=== PATIENT | female | born 1940 | race Caucasian/White ===

== ENCOUNTER 2021-06-20 20:07 | Inpatient (IN) | payer MEDICARE ==
[2021-06-20 21:05] VITALS: BMI 25.0
[2021-06-21] MEDS ORDERED: DIPHENHYDRAMINE TOP PRN (08:02)
[2021-06-21] MEDS ORDERED: Levothyroxine Sodium 25 MCG TAB PO SCH (08:45)
[2021-06-21] MEDS: Betamethasone 0.1% Cream 15 GM TUBE TOP SCH (08:54)
[2021-06-21] MEDS: Aspirin 81 mg Enteric Coated Tablet PO SCH (08:59)
[2021-06-21] MEDS: Furosemide 20 MG TAB PO SCH (08:59)
[2021-06-21] MEDS: Apixaban 5 MG TAB PO SCH ×2 (09:00→21:18)
[2021-06-21] MEDS: Mirtazapine 15 MG TAB PO SCH (09:01)
[2021-06-21] MEDS: Acetaminophen 325 MG TAB PO PRN ×2 (09:21→21:39)
[2021-06-21] MEDS ORDERED: GUANFACINE HCL 1 MG PO SCH (21:00)
[2021-06-21] MEDS: Rosuvastatin 10 MG TAB PO SCH (21:18)
[2021-06-22] MEDS: Acetaminophen 325 MG TAB PO PRN (05:05)
[2021-06-22] MEDS: Levothyroxine Sodium 25 MCG TAB PO SCH (05:05)
[2021-06-22 05:36] LABS: #Eosinphils 0.1 thou/uL (0.0-0.7); #Lymphocytes 1.8 thou/uL (1.20-3.40); #Monocytes 0.5 thou/uL (0.11-0.59); #Neutrophils 2.8 thou/uL (1.40-6.50); %Basophils 0.5 % (0.0-1.0); %Eosinophils 2.3 % (0.0-10.0); %Lymphocytes 34.5 % (21.0-51.0); %Monocytes 9.2 % (0.0-10.0); %Neutrophils 53.5 % (42.0-75.0); Mean Corpuscular HGB CONC 33.8 g/dL (32.0-36.0); Mean Corpuscular Hemoglobin 30.2 pg (27.0-31.0); Mean Corpuscular Volume 89.5 fL (78.0-98.0); Mean Platelet Volume 7.5 fL (7.4-10.4); Platelet Count 157 thou/uL (130-400); RBC Distribution Width 12.6 % (11.5-14.5); Red Blood Cell (RBC) Count 4.31 mill/uL (4.20-5.40); White Blood Cell (WBC) Count 5.2 thou/uL (4.8-10.8)
[2021-06-22 05:48] LABS: Anion Gap 11 mmol/L (10-20); BUN (Urea Nitrogen) 19 mg/dL (9.8-20.1); Calc. Creatinine Clearance 61 mL/min (70-130); Calcium 9.3 mg/dL (7.8-10.44); Carbon Dioxide 26 mmol/L (23-31); Chloride 99 mmol/L (98-107); Glucose 92 mg/dL (83-110); Potassium 4.6 mmol/L (3.5-5.1); Sodium 131 mmol/L (136-145)
[2021-06-22] MEDS: Mirtazapine 15 MG TAB PO SCH (09:55)
[2021-06-22] MEDS: Furosemide 20 MG TAB PO SCH (09:56)
[2021-06-22] MEDS: Aspirin 81 mg Enteric Coated Tablet PO SCH (09:56)
[2021-06-22] MEDS: Apixaban 5 MG TAB PO SCH ×2 (09:56→20:45)
[2021-06-22] MEDS: Betamethasone 0.1% Cream 15 GM TUBE TOP SCH (09:57)
[2021-06-22] MEDS: hydrALAZINE 25 MG TAB PO PRN (13:18)
[2021-06-22] MEDS ORDERED: hydrALAZINE 25 MG TAB PO SCH (14:00)
[2021-06-22] MEDS: Rosuvastatin 10 MG TAB PO SCH (20:44)
[2021-06-23] MEDS: Levothyroxine Sodium 25 MCG TAB PO SCH (05:52)
[2021-06-23] MEDS: Mirtazapine 15 MG TAB PO SCH (09:12)
[2021-06-23] MEDS: Aspirin 81 mg Enteric Coated Tablet PO SCH (09:13)
[2021-06-23] MEDS: Apixaban 5 MG TAB PO SCH ×2 (09:13→21:28)
[2021-06-23] MEDS: Furosemide 20 MG TAB PO SCH (09:13)
[2021-06-23] MEDS: Betamethasone 0.1% Cream 15 GM TUBE TOP SCH (09:14)
[2021-06-23 14:14] LABS: SARS-CoV-2 PCR by NAA Not Detected (NotDetected)
[2021-06-23] MEDS: Rosuvastatin 10 MG TAB PO SCH (21:28)
[2021-06-23] MEDS: Acetaminophen 325 MG TAB PO PRN (23:56)
[2021-06-24] MEDS: Levothyroxine Sodium 25 MCG TAB PO SCH (05:29)
[2021-06-24] MEDS: Apixaban 5 MG TAB PO SCH ×2 (08:53→20:23)
[2021-06-24] MEDS: Furosemide 20 MG TAB PO SCH (08:53)
[2021-06-24] MEDS: Aspirin 81 mg Enteric Coated Tablet PO SCH (08:53)
[2021-06-24] MEDS: Mirtazapine 15 MG TAB PO SCH (08:55)
[2021-06-24] MEDS: Betamethasone 0.1% Cream 15 GM TUBE TOP SCH (08:58)
[2021-06-24] MEDS: Acetaminophen 325 MG TAB PO PRN (09:00)
[2021-06-24] MEDS ORDERED: Fluconazole 100 MG TAB PO SCH (11:45)
[2021-06-24] MEDS: Rosuvastatin 10 MG TAB PO SCH (20:23)
[2021-06-25] MEDS: Levothyroxine Sodium 25 MCG TAB PO SCH (05:22)
[2021-06-25] MEDS: Fluconazole 100 MG TAB PO SCH (09:30)
[2021-06-25] MEDS: Aspirin 81 mg Enteric Coated Tablet PO SCH (09:30)
[2021-06-25] MEDS: Apixaban 5 MG TAB PO SCH ×2 (09:30→20:58)
[2021-06-25] MEDS: Mirtazapine 15 MG TAB PO SCH (09:31)
[2021-06-25] MEDS: Acetaminophen 325 MG TAB PO PRN ×2 (09:31→17:15)
[2021-06-25] MEDS: Furosemide 20 MG TAB PO SCH (09:31)
[2021-06-25] MEDS: Betamethasone 0.1% Cream 15 GM TUBE TOP SCH (09:35)
[2021-06-25] MEDS: Rosuvastatin 10 MG TAB PO SCH (20:58)
[2021-06-26] MEDS: Levothyroxine Sodium 25 MCG TAB PO SCH (05:39)
[2021-06-26] MEDS: Furosemide 20 MG TAB PO SCH (09:43)
[2021-06-26] MEDS: Apixaban 5 MG TAB PO SCH ×2 (09:43→21:02)
[2021-06-26] MEDS: Fluconazole 100 MG TAB PO SCH (09:44)
[2021-06-26] MEDS: Mirtazapine 15 MG TAB PO SCH (09:45)
[2021-06-26] MEDS: Betamethasone 0.1% Cream 15 GM TUBE TOP SCH (09:46)
[2021-06-26] MEDS: Aspirin 81 mg Enteric Coated Tablet PO SCH (09:46)
[2021-06-26] MEDS: Acetaminophen 325 MG TAB PO PRN (10:24)
[2021-06-26] MEDS: Rosuvastatin 10 MG TAB PO SCH (21:02)
[2021-06-27] MEDS: Levothyroxine Sodium 25 MCG TAB PO SCH (05:31)
[2021-06-27] MEDS: Furosemide 20 MG TAB PO SCH (09:09)
[2021-06-27] MEDS: Betamethasone 0.1% Cream 15 GM TUBE TOP SCH (09:10)
[2021-06-27] MEDS: Aspirin 81 mg Enteric Coated Tablet PO SCH (09:10)
[2021-06-27] MEDS: Apixaban 5 MG TAB PO SCH ×2 (09:10→21:08)
[2021-06-27] MEDS: Mirtazapine 15 MG TAB PO SCH (09:11)
[2021-06-27] MEDS: Acetaminophen 325 MG TAB PO PRN (11:29)
[2021-06-27] MEDS: Rosuvastatin 10 MG TAB PO SCH (21:08)
[2021-06-28] MEDS: Levothyroxine Sodium 25 MCG TAB PO SCH (05:19)
[2021-06-28] MEDS: Acetaminophen 325 MG TAB PO PRN ×2 (08:29→20:45)
[2021-06-28] MEDS: Aspirin 81 mg Enteric Coated Tablet PO SCH (08:30)
[2021-06-28] MEDS: Apixaban 5 MG TAB PO SCH ×2 (08:30→20:43)
[2021-06-28] MEDS: Betamethasone 0.1% Cream 15 GM TUBE TOP SCH (08:31)
[2021-06-28] MEDS: Mirtazapine 15 MG TAB PO SCH (08:31)
[2021-06-28] MEDS: Furosemide 20 MG TAB PO SCH (08:31)
[2021-06-28] MEDS: Rosuvastatin 10 MG TAB PO SCH (20:44)
[2021-06-29] MEDS: Levothyroxine Sodium 25 MCG TAB PO SCH (05:27)
[2021-06-29] MEDS: Aspirin 81 mg Enteric Coated Tablet PO SCH (10:25)
[2021-06-29] MEDS: Mirtazapine 15 MG TAB PO SCH (10:25)
[2021-06-29] MEDS: Furosemide 20 MG TAB PO SCH (10:25)
[2021-06-29] MEDS: Apixaban 5 MG TAB PO SCH ×2 (10:25→20:54)
[2021-06-29] MEDS: Acetaminophen 325 MG TAB PO PRN ×2 (10:26→17:23)
[2021-06-29] MEDS: Betamethasone 0.1% Cream 15 GM TUBE TOP SCH (10:26)
[2021-06-29] MEDS: Rosuvastatin 10 MG TAB PO SCH (20:54)
[2021-06-30] MEDS: Levothyroxine Sodium 25 MCG TAB PO SCH (05:37)
[2021-06-30] MEDS: Apixaban 5 MG TAB PO SCH ×2 (09:14→21:54)
[2021-06-30] MEDS: Betamethasone 0.1% Cream 15 GM TUBE TOP SCH (09:14)
[2021-06-30] MEDS: Furosemide 20 MG TAB PO SCH (09:14)
[2021-06-30] MEDS: Ibuprofen 200 MG TAB PO PRN (09:14)
[2021-06-30] MEDS: Aspirin 81 mg Enteric Coated Tablet PO SCH (09:14)
[2021-06-30] MEDS: Mirtazapine 15 MG TAB PO SCH (09:15)
[2021-06-30] MEDS: Acetaminophen 325 MG TAB PO PRN (12:28)
[2021-06-30] MEDS: Rosuvastatin 10 MG TAB PO SCH (21:54)
[2021-07-01] MEDS: Levothyroxine Sodium 25 MCG TAB PO SCH (05:38)
[2021-07-01] MEDS: Mirtazapine 15 MG TAB PO SCH (09:04)
[2021-07-01] MEDS: Ibuprofen 200 MG TAB PO PRN ×2 (09:04→17:37)
[2021-07-01] MEDS: Furosemide 20 MG TAB PO SCH (09:04)
[2021-07-01] MEDS: Apixaban 5 MG TAB PO SCH ×2 (09:04→21:32)
[2021-07-01] MEDS: Aspirin 81 mg Enteric Coated Tablet PO SCH (09:05)
[2021-07-01] MEDS: Betamethasone 0.1% Cream 15 GM TUBE TOP SCH (09:05)
[2021-07-01] MEDS: Acetaminophen 325 MG TAB PO PRN (12:15)
[2021-07-01 17:38] LABS: SARS-CoV-2 PCR by NAA Not Detected (NotDetected)
[2021-07-01] MEDS: Rosuvastatin 10 MG TAB PO SCH (21:32)
[2021-07-02] MEDS: Levothyroxine Sodium 25 MCG TAB PO SCH (05:38)
[2021-07-02] MEDS: Furosemide 20 MG TAB PO SCH (10:01)
[2021-07-02] MEDS: Mirtazapine 15 MG TAB PO SCH (10:01)
[2021-07-02] MEDS: Aspirin 81 mg Enteric Coated Tablet PO SCH (10:01)
[2021-07-02] MEDS: Apixaban 5 MG TAB PO SCH ×2 (10:02→20:57)
[2021-07-02] MEDS: Betamethasone 0.1% Cream 15 GM TUBE TOP SCH (10:03)
[2021-07-02] MEDS: Rosuvastatin 10 MG TAB PO SCH (20:57)
[2021-07-03] MEDS: Levothyroxine Sodium 25 MCG TAB PO SCH (05:14)
[2021-07-03] MEDS: Furosemide 20 MG TAB PO SCH (08:53)
[2021-07-03] MEDS: Aspirin 81 mg Enteric Coated Tablet PO SCH (08:53)
[2021-07-03] MEDS: Apixaban 5 MG TAB PO SCH ×2 (08:53→21:02)
[2021-07-03] MEDS: Mirtazapine 15 MG TAB PO SCH (08:54)
[2021-07-03] MEDS: Betamethasone 0.1% Cream 15 GM TUBE TOP SCH (08:55)
[2021-07-03] MEDS: Ibuprofen 200 MG TAB PO PRN (13:01)
[2021-07-03] MEDS: Rosuvastatin 10 MG TAB PO SCH (21:02)
[2021-07-04] MEDS: Levothyroxine Sodium 25 MCG TAB PO SCH (05:34)
[2021-07-04] MEDS: hydrALAZINE 25 MG TAB PO PRN (09:07)
[2021-07-04] MEDS: Aspirin 81 mg Enteric Coated Tablet PO SCH (09:07)
[2021-07-04] MEDS: Apixaban 5 MG TAB PO SCH ×2 (09:08→20:45)
[2021-07-04] MEDS: Furosemide 20 MG TAB PO SCH (09:08)
[2021-07-04] MEDS: Betamethasone 0.1% Cream 15 GM TUBE TOP SCH (09:09)
[2021-07-04] MEDS: Mirtazapine 15 MG TAB PO SCH (09:10)
[2021-07-04 15:31] LABS: Bilirubin Negative (Negative); Blood, Urine Small (Negative); Glucose, Urine (Dipstick) Negative (Negative); Ketone, Urine Negative (Negative); Leukocyte Large (Negative); Nitrite Negative (Negative); Protein, Urine (Dipstick) Trace mg/dL (Neg-Trace); Urobilinogen 0.2 mg/dL (Less than 2)
[2021-07-04 15:32] LABS: Clarity Cloudy (Clear)
[2021-07-04 15:33] LABS: Bacteria/HPF 2+ HPF (None Seen); Squamous Epithelial 0-3 HPF (0-3); WBC/HPF Greater Than 50 HPF (0-3)
[2021-07-04 15:34] LABS: Urine Culture Reflex Yes Yes
[2021-07-04] MEDS: Acetaminophen 325 MG TAB PO PRN ×2 (16:55→20:46)
[2021-07-04] MEDS ORDERED: Ciprofloxacin 500 MG TAB PO SCH (17:00)
[2021-07-04] MEDS: Rosuvastatin 10 MG TAB PO SCH (20:45)
[2021-07-05 05:30] LABS: Hemoglobin 13.1 g/dL (12.0-16.0); Platelet Count 215 thou/uL (130-400)
[2021-07-05] MEDS: Levothyroxine Sodium 25 MCG TAB PO SCH (05:38)
[2021-07-05] MEDS: Ciprofloxacin 500 MG TAB PO SCH ×2 (05:39→20:24)
[2021-07-05] MEDS: Furosemide 20 MG TAB PO SCH (10:29)
[2021-07-05] MEDS: Mirtazapine 15 MG TAB PO SCH (10:30)
[2021-07-05] MEDS: Acetaminophen 325 MG TAB PO PRN ×2 (10:31→20:24)
[2021-07-05] MEDS: Aspirin 81 mg Enteric Coated Tablet PO SCH (10:31)
[2021-07-05] MEDS: Apixaban 5 MG TAB PO SCH ×2 (10:31→20:23)
[2021-07-05] MEDS: Betamethasone 0.1% Cream 15 GM TUBE TOP SCH (10:32)
[2021-07-05] MEDS: Ibuprofen 200 MG TAB PO PRN (15:31)
[2021-07-05] MEDS: Rosuvastatin 10 MG TAB PO SCH (20:24)
[2021-07-06] MEDS: Levothyroxine Sodium 25 MCG TAB PO SCH (05:43)
[2021-07-06] MEDS: Ciprofloxacin 500 MG TAB PO SCH ×2 (05:43→20:23)
[2021-07-06] MEDS: Aspirin 81 mg Enteric Coated Tablet PO SCH (09:18)
[2021-07-06] MEDS: Furosemide 20 MG TAB PO SCH (09:18)
[2021-07-06] MEDS: Apixaban 5 MG TAB PO SCH ×2 (09:18→20:23)
[2021-07-06] MEDS: Mirtazapine 15 MG TAB PO SCH (09:19)
[2021-07-06] MEDS: Betamethasone 0.1% Cream 15 GM TUBE TOP SCH (09:20)
[2021-07-06] MEDS: Acetaminophen 325 MG TAB PO PRN (17:39)
[2021-07-06] MEDS: Rosuvastatin 10 MG TAB PO SCH (20:23)
[2021-07-07] MEDS: Ciprofloxacin 500 MG TAB PO SCH ×2 (05:09→21:34)
[2021-07-07] MEDS: Levothyroxine Sodium 25 MCG TAB PO SCH (05:09)
[2021-07-07] MEDS: Aspirin 81 mg Enteric Coated Tablet PO SCH (10:34)
[2021-07-07] MEDS: Apixaban 5 MG TAB PO SCH ×2 (10:34→21:33)
[2021-07-07] MEDS: Betamethasone 0.1% Cream 15 GM TUBE TOP SCH (10:34)
[2021-07-07] MEDS: Furosemide 20 MG TAB PO SCH (10:34)
[2021-07-07] MEDS: Mirtazapine 15 MG TAB PO SCH (10:35)
[2021-07-07] MEDS: Acetaminophen 325 MG TAB PO PRN ×2 (10:35→21:56)
[2021-07-07] MEDS: Ibuprofen 200 MG TAB PO PRN (15:50)
[2021-07-07] MEDS: Rosuvastatin 10 MG TAB PO SCH (21:34)
[2021-07-08] MEDS: Ciprofloxacin 500 MG TAB PO SCH ×2 (05:04→21:00)
[2021-07-08] MEDS: Levothyroxine Sodium 25 MCG TAB PO SCH (05:04)
[2021-07-08] MEDS: Mirtazapine 15 MG TAB PO SCH (09:00)
[2021-07-08] MEDS: Ibuprofen 200 MG TAB PO PRN (09:01)
[2021-07-08] MEDS: Aspirin 81 mg Enteric Coated Tablet PO SCH (09:01)
[2021-07-08] MEDS: Apixaban 5 MG TAB PO SCH ×2 (09:01→20:59)
[2021-07-08] MEDS: Betamethasone 0.1% Cream 15 GM TUBE TOP SCH (09:01)
[2021-07-08] MEDS: Furosemide 20 MG TAB PO SCH (09:01)
[2021-07-08] MEDS: Acetaminophen 325 MG TAB PO PRN ×2 (13:18→20:58)
[2021-07-08] MEDS: Rosuvastatin 10 MG TAB PO SCH (20:59)
[2021-07-09] MEDS: Levothyroxine Sodium 25 MCG TAB PO SCH (05:36)
[2021-07-09] MEDS: Ciprofloxacin 500 MG TAB PO SCH (05:37)
[2021-07-09] MEDS: Mirtazapine 15 MG TAB PO SCH (08:18)
[2021-07-09] MEDS: Betamethasone 0.1% Cream 15 GM TUBE TOP SCH (08:18)
[2021-07-09] MEDS: Aspirin 81 mg Enteric Coated Tablet PO SCH (08:19)
[2021-07-09] MEDS: Apixaban 5 MG TAB PO SCH ×2 (08:19→20:40)
[2021-07-09] MEDS: Furosemide 20 MG TAB PO SCH (08:19)
[2021-07-09] MEDS: Ibuprofen 200 MG TAB PO PRN (12:14)
[2021-07-09] MEDS: Rosuvastatin 10 MG TAB PO SCH (20:40)
[2021-07-10] MEDS: Levothyroxine Sodium 25 MCG TAB PO SCH (05:05)
[2021-07-10 06:26] VITALS: BP 124/68; TEMP 97.8
[2021-07-10] MEDS: Aspirin 81 mg Enteric Coated Tablet PO SCH (08:19)
[2021-07-10] MEDS: Apixaban 5 MG TAB PO SCH (08:20)
[2021-07-10] MEDS: Furosemide 20 MG TAB PO SCH (08:20)
[2021-07-10] MEDS: Mirtazapine 15 MG TAB PO SCH (08:20)
[2021-07-10] MEDS: Betamethasone 0.1% Cream 15 GM TUBE TOP SCH (08:21)
[2021-07-10] MEDS: Acetaminophen 325 MG TAB PO PRN (08:28)
== END 2021-07-10 14:05 | disposition home health service (06) | DRG 948 ==
LOC: BURMED 20:07
PROVIDERS: ADMIT Family Medicine; ATTEND Family Medicine
DX: R53.1 Weakness (principal); E87.1 Hypo-osmolality and hyponatremia; N39.0 Urinary tract infection, site not specified; R47.01 Aphasia; R53.81 Other malaise; I48.91 Unspecified atrial fibrillation; Z20.822 Contact with and (suspected) exposure to COVID-19; B96.89 Other specified bacterial agents as the cause of diseases classified elsewhere; I10 Essential (primary) hypertension; Z88.1 Allergy status to other antibiotic agents; Z88.2 Allergy status to sulfonamides; Z88.8 Allergy status to other drugs, medicaments and biological substances
CPT/HCPCS: 36415; 80048; 81001; 85014; 85018; 85025; 85049; 87077; 87086; 87186; U0003; U0005

== ENCOUNTER 2021-12-20 16:25 | Inpatient (IN) | payer MEDICARE ==
[2021-12-20 17:21] VITALS: BMI 27.8
[2021-12-20] MEDS ORDERED: Bisacodyl 5 MG TAB PO PRN (18:19)
[2021-12-20] MEDS ORDERED: Bisacodyl 10 MG SUPP PR PRN (18:19)
[2021-12-20 21:31] LABS: Bilirubin Negative (Negative); Blood, Urine Large (Negative); Clarity Cloudy (Clear); Glucose, Urine (Dipstick) Negative (Negative); Ketone, Urine Negative (Negative); Leukocyte Large (Negative); Nitrite Negative (Negative); Protein, Urine (Dipstick) 100 mg/dL (Neg-Trace); pH, Urine 7.5 (5.0-9.0)
[2021-12-20 21:34] LABS: RBC/HPF 21-50 HPF (0-3)
[2021-12-20 21:35] LABS: Bacteria/HPF 3+ HPF (None Seen); WBC/HPF Greater than 50 HPF (0-3)
[2021-12-20] MEDS: Apixaban 5 MG TAB PO SCH (22:43)
[2021-12-21] MEDS ORDERED: Ondansetron ODT 4 MG TAB PO PRN (09:20)
[2021-12-21] MEDS ORDERED: Aspirin 81 mg Enteric Coated Tablet PO SCH (11:00)
[2021-12-21] MEDS ORDERED: Levothyroxine Sodium 25 MCG TAB PO SCH (11:00)
[2021-12-21] MEDS ORDERED: Furosemide 20 MG TAB PO SCH (11:00)
[2021-12-21] MEDS ORDERED: Levothyroxine Sodium 50 MCG TAB PO SCH (11:00)
[2021-12-21] MEDS ORDERED: Mirtazapine 15 MG TAB PO SCH (11:00)
[2021-12-21] MEDS: Acetaminophen 325 MG TAB PO PRN ×2 (11:29→22:29)
[2021-12-21] MEDS ORDERED: Apixaban 5 MG TAB PO SCH (11:30)
[2021-12-21] MEDS: Lorazepam 0.5 MG TAB PO SCH (14:07)
[2021-12-21] MEDS: Apixaban 5 MG TAB PO SCH ×2 (15:47→22:29)
[2021-12-21] MEDS: Ziprasidone 20 MG CAP PO SCH (17:33)
[2021-12-21] MEDS: Rosuvastatin 10 MG TAB PO SCH (22:28)
[2021-12-21] MEDS: Donepezil HCl 10 MG TAB PO SCH (22:28)
[2021-12-21] MEDS: guanFACINE HCl 1 MG TAB PO SCH (22:28)
[2021-12-21] MEDS ORDERED: Ciprofloxacin 500 MG TAB PO SCH (22:30)
[2021-12-21] MEDS: Ciprofloxacin 500 MG TAB PO SCH (22:31)
[2021-12-22] MEDS: Levothyroxine Sodium 25 MCG TAB PO SCH (05:47)
[2021-12-22] MEDS: Levothyroxine Sodium 50 MCG TAB PO SCH (05:47)
[2021-12-22] MEDS: Ciprofloxacin 500 MG TAB PO SCH ×2 (05:47→20:29)
[2021-12-22] MEDS: Apixaban 5 MG TAB PO SCH ×2 (09:44→20:29)
[2021-12-22] MEDS: Furosemide 20 MG TAB PO SCH (09:44)
[2021-12-22] MEDS: Ziprasidone 20 MG CAP PO SCH ×2 (09:44→17:23)
[2021-12-22] MEDS: Aspirin 81 mg Enteric Coated Tablet PO SCH (09:44)
[2021-12-22] MEDS: Mirtazapine 15 MG TAB PO SCH (09:45)
[2021-12-22] MEDS: Acetaminophen 325 MG TAB PO PRN ×2 (09:48→20:29)
[2021-12-22] MEDS: Lorazepam 0.5 MG TAB PO SCH (13:27)
[2021-12-22] MEDS: guanFACINE HCl 1 MG TAB PO SCH (20:28)
[2021-12-22] MEDS: Donepezil HCl 10 MG TAB PO SCH (20:29)
[2021-12-22] MEDS: Rosuvastatin 10 MG TAB PO SCH (20:29)
[2021-12-23] MEDS: Levothyroxine Sodium 50 MCG TAB PO SCH (04:48)
[2021-12-23] MEDS: Ciprofloxacin 500 MG TAB PO SCH (04:48)
[2021-12-23] MEDS: Levothyroxine Sodium 25 MCG TAB PO SCH (04:48)
[2021-12-23] MEDS: Ziprasidone 20 MG CAP PO SCH ×2 (08:53→17:02)
[2021-12-23] MEDS: Mirtazapine 15 MG TAB PO SCH (08:53)
[2021-12-23] MEDS: Apixaban 5 MG TAB PO SCH ×2 (08:53→20:51)
[2021-12-23] MEDS: Aspirin 81 mg Enteric Coated Tablet PO SCH (08:53)
[2021-12-23] MEDS: Furosemide 20 MG TAB PO SCH (08:53)
[2021-12-23] MEDS: Acetaminophen 325 MG TAB PO PRN (08:54)
[2021-12-23] MEDS ORDERED: Iopamidol 370 76% 100 ML VIAL FS ONE (11:19)
[2021-12-23] MEDS: Lorazepam 0.5 MG TAB PO SCH (12:37)
[2021-12-23] MEDS: Sodium Chloride 0.9% 1,000 ML IV SCH (13:31)
[2021-12-23] MEDS: cefTRIAXone\\ROCEPHIN 1 GM in Sodium Chloride 0.9% 100 ML IVPB SCH (14:42)
[2021-12-23] MEDS: Rosuvastatin 10 MG TAB PO SCH (20:51)
[2021-12-23] MEDS: Donepezil HCl 10 MG TAB PO SCH (20:51)
[2021-12-23] MEDS: guanFACINE HCl 1 MG TAB PO SCH (20:51)
[2021-12-24] MEDS: Acetaminophen 325 MG TAB PO PRN ×2 (01:04→09:39)
[2021-12-24] MEDS: Levothyroxine Sodium 25 MCG TAB PO SCH (06:08)
[2021-12-24] MEDS: Sodium Chloride 0.9% 1,000 ML IV SCH ×2 (06:08→15:40)
[2021-12-24] MEDS: Levothyroxine Sodium 50 MCG TAB PO SCH (06:08)
[2021-12-24] MEDS: Aspirin 81 mg Enteric Coated Tablet PO SCH (09:38)
[2021-12-24] MEDS: Furosemide 20 MG TAB PO SCH (09:38)
[2021-12-24] MEDS: Ziprasidone 20 MG CAP PO SCH ×2 (09:38→17:08)
[2021-12-24] MEDS: Mirtazapine 15 MG TAB PO SCH (09:38)
[2021-12-24] MEDS: Apixaban 5 MG TAB PO SCH ×2 (09:39→20:19)
[2021-12-24] MEDS: Lorazepam 0.5 MG TAB PO SCH (12:57)
[2021-12-24] MEDS: cefTRIAXone\\ROCEPHIN 1 GM in Sodium Chloride 0.9% 100 ML IVPB SCH (14:06)
[2021-12-24] MEDS: Rosuvastatin 10 MG TAB PO SCH (20:19)
[2021-12-24] MEDS: Donepezil HCl 10 MG TAB PO SCH (20:19)
[2021-12-24] MEDS: guanFACINE HCl 1 MG TAB PO SCH (20:19)
[2021-12-25 04:42] LABS: Hemoglobin 12.1 g/dL (12.0-16.0); Platelet Count 166 thou/uL (130-400)
[2021-12-25] MEDS: Levothyroxine Sodium 25 MCG TAB PO SCH (05:28)
[2021-12-25] MEDS: Levothyroxine Sodium 50 MCG TAB PO SCH (05:28)
[2021-12-25] MEDS: Sodium Chloride 0.9% 1,000 ML IV SCH ×2 (05:35→10:30)
[2021-12-25] MEDS: Mirtazapine 15 MG TAB PO SCH (09:26)
[2021-12-25] MEDS: Apixaban 5 MG TAB PO SCH ×2 (09:26→22:00)
[2021-12-25] MEDS: Aspirin 81 mg Enteric Coated Tablet PO SCH (09:27)
[2021-12-25] MEDS: Furosemide 20 MG TAB PO SCH (09:27)
[2021-12-25] MEDS: Ziprasidone 20 MG CAP PO SCH (09:27)
[2021-12-25] MEDS: Lorazepam 0.5 MG TAB PO SCH (13:01)
[2021-12-25] MEDS: cefTRIAXone\\ROCEPHIN 1 GM in Sodium Chloride 0.9% 100 ML IVPB SCH (14:29)
[2021-12-25] MEDS: guanFACINE HCl 1 MG TAB PO SCH (22:00)
[2021-12-25] MEDS: Donepezil HCl 10 MG TAB PO SCH (22:00)
[2021-12-25] MEDS: Rosuvastatin 10 MG TAB PO SCH (22:00)
[2021-12-25] MEDS: Clindamycin 150 MG CAP PO SCH (23:28)
[2021-12-25] MEDS: Acetaminophen 325 MG TAB PO PRN (23:32)
[2021-12-26] MEDS: Levothyroxine Sodium 50 MCG TAB PO SCH (05:26)
[2021-12-26] MEDS: Clindamycin 150 MG CAP PO SCH ×3 (05:26→20:58)
[2021-12-26] MEDS: Levothyroxine Sodium 25 MCG TAB PO SCH (05:26)
[2021-12-26] MEDS: Mirtazapine 15 MG TAB PO SCH (10:13)
[2021-12-26] MEDS: Saccharomyces boulardii 250 MG CAP PO SCH (10:14)
[2021-12-26] MEDS: Aspirin 81 mg Enteric Coated Tablet PO SCH (10:14)
[2021-12-26] MEDS: Apixaban 5 MG TAB PO SCH ×2 (10:14→20:58)
[2021-12-26] MEDS: Furosemide 20 MG TAB PO SCH (10:14)
[2021-12-26] MEDS: Lorazepam 0.5 MG TAB PO SCH (12:56)
[2021-12-26] MEDS: cefTRIAXone\\ROCEPHIN 1 GM in Sodium Chloride 0.9% 100 ML IVPB SCH (14:13)
[2021-12-26] MEDS: Acetaminophen 325 MG TAB PO PRN (20:58)
[2021-12-26] MEDS: guanFACINE HCl 1 MG TAB PO SCH (20:58)
[2021-12-26] MEDS: Rosuvastatin 10 MG TAB PO SCH (20:58)
[2021-12-26] MEDS: Donepezil HCl 10 MG TAB PO SCH (20:59)
[2021-12-27] MEDS: Levothyroxine Sodium 50 MCG TAB PO SCH (05:28)
[2021-12-27] MEDS: Clindamycin 150 MG CAP PO SCH ×3 (05:28→20:29)
[2021-12-27] MEDS: Levothyroxine Sodium 25 MCG TAB PO SCH (05:28)
[2021-12-27] MEDS: Acetaminophen 325 MG TAB PO PRN ×3 (05:52→20:29)
[2021-12-27] MEDS: Furosemide 20 MG TAB PO SCH (09:20)
[2021-12-27] MEDS: Apixaban 5 MG TAB PO SCH ×2 (09:20→20:29)
[2021-12-27] MEDS: Saccharomyces boulardii 250 MG CAP PO SCH (09:20)
[2021-12-27] MEDS: Aspirin 81 mg Enteric Coated Tablet PO SCH (09:20)
[2021-12-27] MEDS: Mirtazapine 15 MG TAB PO SCH (09:20)
[2021-12-27] MEDS: Lorazepam 0.5 MG TAB PO SCH (12:32)
[2021-12-27] MEDS: cefTRIAXone\\ROCEPHIN 1 GM in Sodium Chloride 0.9% 100 ML IVPB SCH (13:29)
[2021-12-27] MEDS: Rosuvastatin 10 MG TAB PO SCH (20:29)
[2021-12-27] MEDS: guanFACINE HCl 1 MG TAB PO SCH (20:29)
[2021-12-27] MEDS: Donepezil HCl 10 MG TAB PO SCH (20:29)
[2021-12-27] MEDS: Lorazepam 1 MG TAB PO PRN (22:53)
[2021-12-28] MEDS: Levothyroxine Sodium 50 MCG TAB PO SCH (05:13)
[2021-12-28] MEDS: Clindamycin 150 MG CAP PO SCH ×3 (05:13→22:55)
[2021-12-28] MEDS: Levothyroxine Sodium 25 MCG TAB PO SCH (05:13)
[2021-12-28] MEDS: Acetaminophen 325 MG TAB PO PRN ×2 (09:08→22:55)
[2021-12-28] MEDS: Aspirin 81 mg Enteric Coated Tablet PO SCH (09:08)
[2021-12-28] MEDS: Furosemide 20 MG TAB PO SCH (09:08)
[2021-12-28] MEDS: Mirtazapine 15 MG TAB PO SCH (09:08)
[2021-12-28] MEDS: Saccharomyces boulardii 250 MG CAP PO SCH (09:08)
[2021-12-28] MEDS: Apixaban 5 MG TAB PO SCH ×2 (09:08→23:02)
[2021-12-28] MEDS: Lorazepam 0.5 MG TAB PO SCH (12:19)
[2021-12-28] MEDS: cefTRIAXone\\ROCEPHIN 1 GM in Sodium Chloride 0.9% 100 ML IVPB SCH (13:30)
[2021-12-28] MEDS: guanFACINE HCl 1 MG TAB PO SCH (22:55)
[2021-12-28] MEDS: Donepezil HCl 10 MG TAB PO SCH (22:55)
[2021-12-28] MEDS: Rosuvastatin 10 MG TAB PO SCH (22:55)
[2021-12-29] MEDS: Levothyroxine Sodium 25 MCG TAB PO SCH (05:07)
[2021-12-29] MEDS: Clindamycin 150 MG CAP PO SCH ×3 (05:07→22:13)
[2021-12-29] MEDS: Levothyroxine Sodium 50 MCG TAB PO SCH (05:07)
[2021-12-29] MEDS: Saccharomyces boulardii 250 MG CAP PO SCH (09:41)
[2021-12-29] MEDS: Mirtazapine 15 MG TAB PO SCH (09:41)
[2021-12-29] MEDS: Furosemide 20 MG TAB PO SCH (09:41)
[2021-12-29] MEDS: Apixaban 5 MG TAB PO SCH ×2 (09:42→22:13)
[2021-12-29] MEDS: Aspirin 81 mg Enteric Coated Tablet PO SCH (09:42)
[2021-12-29] MEDS: Acetaminophen 325 MG TAB PO PRN ×3 (09:42→22:13)
[2021-12-29] MEDS: Lorazepam 0.5 MG TAB PO SCH (13:21)
[2021-12-29] MEDS: cefTRIAXone\\ROCEPHIN 1 GM in Sodium Chloride 0.9% 100 ML IVPB SCH (14:33)
[2021-12-29] MEDS: guanFACINE HCl 1 MG TAB PO SCH (22:13)
[2021-12-29] MEDS: Rosuvastatin 10 MG TAB PO SCH (22:13)
[2021-12-29] MEDS: Donepezil HCl 10 MG TAB PO SCH (22:13)
[2021-12-30] MEDS: Clindamycin 150 MG CAP PO SCH ×3 (05:09→21:11)
[2021-12-30] MEDS: Levothyroxine Sodium 50 MCG TAB PO SCH (05:09)
[2021-12-30] MEDS: Levothyroxine Sodium 25 MCG TAB PO SCH (05:09)
[2021-12-30] MEDS: Acetaminophen 325 MG TAB PO PRN ×2 (09:11→13:32)
[2021-12-30] MEDS: Aspirin 81 mg Enteric Coated Tablet PO SCH (09:11)
[2021-12-30] MEDS: Saccharomyces boulardii 250 MG CAP PO SCH (09:11)
[2021-12-30] MEDS: Apixaban 5 MG TAB PO SCH ×2 (09:11→21:12)
[2021-12-30] MEDS: Mirtazapine 15 MG TAB PO SCH (09:11)
[2021-12-30] MEDS: Furosemide 20 MG TAB PO SCH (09:11)
[2021-12-30] MEDS: Lorazepam 0.5 MG TAB PO SCH (12:23)
[2021-12-30] MEDS: cefTRIAXone\\ROCEPHIN 1 GM in Sodium Chloride 0.9% 100 ML IVPB SCH (13:26)
[2021-12-30] MEDS: Donepezil HCl 10 MG TAB PO SCH (21:12)
[2021-12-30] MEDS: guanFACINE HCl 1 MG TAB PO SCH (21:12)
[2021-12-30] MEDS: Rosuvastatin 10 MG TAB PO SCH (21:12)
[2021-12-31] MEDS: Clindamycin 150 MG CAP PO SCH ×3 (05:18→21:54)
[2021-12-31] MEDS: Levothyroxine Sodium 50 MCG TAB PO SCH (05:18)
[2021-12-31] MEDS: Levothyroxine Sodium 25 MCG TAB PO SCH (05:18)
[2021-12-31] MEDS: Aspirin 81 mg Enteric Coated Tablet PO SCH (08:55)
[2021-12-31] MEDS: Saccharomyces boulardii 250 MG CAP PO SCH (08:55)
[2021-12-31] MEDS: Apixaban 5 MG TAB PO SCH ×2 (08:55→21:55)
[2021-12-31] MEDS: Mirtazapine 15 MG TAB PO SCH (08:55)
[2021-12-31] MEDS: Furosemide 20 MG TAB PO SCH (08:55)
[2021-12-31] MEDS: Acetaminophen 325 MG TAB PO PRN ×2 (08:55→17:56)
[2021-12-31] MEDS: Lorazepam 0.5 MG TAB PO SCH (12:39)
[2021-12-31] MEDS: Donepezil HCl 10 MG TAB PO SCH (21:54)
[2021-12-31] MEDS: Rosuvastatin 10 MG TAB PO SCH (21:54)
[2021-12-31] MEDS: guanFACINE HCl 1 MG TAB PO SCH (21:54)
[2022-01-01] MEDS: Levothyroxine Sodium 25 MCG TAB PO SCH (05:24)
[2022-01-01] MEDS: Levothyroxine Sodium 50 MCG TAB PO SCH (05:24)
[2022-01-01] MEDS: Clindamycin 150 MG CAP PO SCH ×3 (05:24→22:12)
[2022-01-01] MEDS: Acetaminophen 325 MG TAB PO PRN ×2 (08:45→22:12)
[2022-01-01] MEDS: Furosemide 20 MG TAB PO SCH (08:46)
[2022-01-01] MEDS: Aspirin 81 mg Enteric Coated Tablet PO SCH (08:46)
[2022-01-01] MEDS: Apixaban 5 MG TAB PO SCH ×2 (08:47→22:09)
[2022-01-01] MEDS: Mirtazapine 15 MG TAB PO SCH (08:47)
[2022-01-01] MEDS: Saccharomyces boulardii 250 MG CAP PO SCH (08:47)
[2022-01-01] MEDS: Lorazepam 0.5 MG TAB PO SCH (14:10)
[2022-01-01] MEDS: Donepezil HCl 10 MG TAB PO SCH (22:09)
[2022-01-01] MEDS: Rosuvastatin 10 MG TAB PO SCH (22:09)
[2022-01-01] MEDS: guanFACINE HCl 1 MG TAB PO SCH (22:10)
[2022-01-02] MEDS: Clindamycin 150 MG CAP PO SCH ×3 (04:47→21:10)
[2022-01-02] MEDS: Levothyroxine Sodium 25 MCG TAB PO SCH (04:48)
[2022-01-02] MEDS: Levothyroxine Sodium 50 MCG TAB PO SCH (04:48)
[2022-01-02 06:07] LABS: Hemoglobin 11.7 g/dL (12.0-16.0); Platelet Count 285 thou/uL (130-400)
[2022-01-02] MEDS: Apixaban 5 MG TAB PO SCH ×2 (08:43→21:10)
[2022-01-02] MEDS: Mirtazapine 15 MG TAB PO SCH (08:43)
[2022-01-02] MEDS: Acetaminophen 325 MG TAB PO PRN ×3 (08:43→21:10)
[2022-01-02] MEDS: Aspirin 81 mg Enteric Coated Tablet PO SCH (08:43)
[2022-01-02] MEDS: Saccharomyces boulardii 250 MG CAP PO SCH (08:43)
[2022-01-02] MEDS: Furosemide 20 MG TAB PO SCH (08:43)
[2022-01-02] MEDS: Lorazepam 0.5 MG TAB PO SCH (12:53)
[2022-01-02] MEDS: Rosuvastatin 10 MG TAB PO SCH (21:10)
[2022-01-02] MEDS: guanFACINE HCl 1 MG TAB PO SCH (21:10)
[2022-01-02] MEDS: Donepezil HCl 10 MG TAB PO SCH (21:10)
[2022-01-03] MEDS: Levothyroxine Sodium 25 MCG TAB PO SCH (05:06)
[2022-01-03] MEDS: Clindamycin 150 MG CAP PO SCH ×3 (05:06→21:10)
[2022-01-03] MEDS: Levothyroxine Sodium 50 MCG TAB PO SCH (05:07)
[2022-01-03] MEDS: Aspirin 81 mg Enteric Coated Tablet PO SCH (09:26)
[2022-01-03] MEDS: Saccharomyces boulardii 250 MG CAP PO SCH (09:26)
[2022-01-03] MEDS: Mirtazapine 15 MG TAB PO SCH (09:26)
[2022-01-03] MEDS: Apixaban 5 MG TAB PO SCH ×2 (09:27→21:11)
[2022-01-03] MEDS: Furosemide 20 MG TAB PO SCH (09:31)
[2022-01-03] MEDS: Lorazepam 0.5 MG TAB PO SCH (13:50)
[2022-01-03] MEDS: Acetaminophen 325 MG TAB PO PRN (21:10)
[2022-01-03] MEDS: guanFACINE HCl 1 MG TAB PO SCH (21:10)
[2022-01-03] MEDS: Rosuvastatin 10 MG TAB PO SCH (21:11)
[2022-01-03] MEDS: Donepezil HCl 10 MG TAB PO SCH (21:11)
[2022-01-04] MEDS: Levothyroxine Sodium 25 MCG TAB PO SCH (04:52)
[2022-01-04] MEDS: Clindamycin 150 MG CAP PO SCH ×3 (04:52→20:15)
[2022-01-04] MEDS: Levothyroxine Sodium 50 MCG TAB PO SCH (04:52)
[2022-01-04] MEDS: Mirtazapine 15 MG TAB PO SCH (09:54)
[2022-01-04] MEDS: Aspirin 81 mg Enteric Coated Tablet PO SCH (09:54)
[2022-01-04] MEDS: Furosemide 20 MG TAB PO SCH (09:54)
[2022-01-04] MEDS: Apixaban 5 MG TAB PO SCH ×2 (09:54→20:15)
[2022-01-04] MEDS: Saccharomyces boulardii 250 MG CAP PO SCH (09:54)
[2022-01-04] MEDS: Lorazepam 0.5 MG TAB PO SCH (13:35)
[2022-01-04] MEDS: Acetaminophen 325 MG TAB PO PRN (20:15)
[2022-01-04] MEDS: Donepezil HCl 10 MG TAB PO SCH (20:15)
[2022-01-04] MEDS: Rosuvastatin 10 MG TAB PO SCH (20:15)
[2022-01-04] MEDS: guanFACINE HCl 1 MG TAB PO SCH (20:15)
[2022-01-05] MEDS: Acetaminophen 325 MG TAB PO PRN (04:52)
[2022-01-05] MEDS: Levothyroxine Sodium 50 MCG TAB PO SCH (04:58)
[2022-01-05] MEDS: Levothyroxine Sodium 25 MCG TAB PO SCH (04:59)
[2022-01-05] MEDS: Clindamycin 150 MG CAP PO SCH (05:00)
[2022-01-05] MEDS: Saccharomyces boulardii 250 MG CAP PO SCH (09:21)
[2022-01-05] MEDS: Apixaban 5 MG TAB PO SCH ×2 (09:21→21:29)
[2022-01-05] MEDS: Aspirin 81 mg Enteric Coated Tablet PO SCH (09:21)
[2022-01-05] MEDS: Mirtazapine 15 MG TAB PO SCH (09:21)
[2022-01-05] MEDS: Furosemide 20 MG TAB PO SCH (09:23)
[2022-01-05] MEDS: Lorazepam 0.5 MG TAB PO SCH (13:12)
[2022-01-05] MEDS: Rosuvastatin 10 MG TAB PO SCH (21:29)
[2022-01-05] MEDS: Donepezil HCl 10 MG TAB PO SCH (21:29)
[2022-01-05] MEDS: guanFACINE HCl 1 MG TAB PO SCH (21:29)
[2022-01-06] MEDS: Levothyroxine Sodium 25 MCG TAB PO SCH (05:26)
[2022-01-06] MEDS: Levothyroxine Sodium 50 MCG TAB PO SCH (05:26)
[2022-01-06] MEDS: Apixaban 5 MG TAB PO SCH ×2 (08:12→20:34)
[2022-01-06] MEDS: Saccharomyces boulardii 250 MG CAP PO SCH (08:12)
[2022-01-06] MEDS: Acetaminophen 325 MG TAB PO PRN ×2 (08:12→20:34)
[2022-01-06] MEDS: Furosemide 20 MG TAB PO SCH (08:12)
[2022-01-06] MEDS: Mirtazapine 15 MG TAB PO SCH (08:12)
[2022-01-06] MEDS: Aspirin 81 mg Enteric Coated Tablet PO SCH (08:12)
[2022-01-06] MEDS: Lorazepam 0.5 MG TAB PO SCH (12:29)
[2022-01-06] MEDS: Donepezil HCl 10 MG TAB PO SCH (20:34)
[2022-01-06] MEDS: guanFACINE HCl 1 MG TAB PO SCH (20:34)
[2022-01-06] MEDS: Rosuvastatin 10 MG TAB PO SCH (20:34)
[2022-01-07] MEDS: Levothyroxine Sodium 25 MCG TAB PO SCH (05:05)
[2022-01-07] MEDS: Levothyroxine Sodium 50 MCG TAB PO SCH (05:05)
[2022-01-07] MEDS: Acetaminophen 325 MG TAB PO PRN ×3 (05:05→22:06)
[2022-01-07] MEDS: Apixaban 5 MG TAB PO SCH ×2 (08:17→22:06)
[2022-01-07] MEDS: Mirtazapine 15 MG TAB PO SCH (08:17)
[2022-01-07] MEDS: Aspirin 81 mg Enteric Coated Tablet PO SCH (08:18)
[2022-01-07] MEDS: Furosemide 20 MG TAB PO SCH (08:18)
[2022-01-07] MEDS: Saccharomyces boulardii 250 MG CAP PO SCH (08:18)
[2022-01-07] MEDS: Lorazepam 0.5 MG TAB PO SCH (12:11)
[2022-01-07] MEDS: Donepezil HCl 10 MG TAB PO SCH (22:06)
[2022-01-07] MEDS: guanFACINE HCl 1 MG TAB PO SCH (22:06)
[2022-01-07] MEDS: Rosuvastatin 10 MG TAB PO SCH (22:06)
[2022-01-08] MEDS: Levothyroxine Sodium 50 MCG TAB PO SCH (05:39)
[2022-01-08] MEDS: Levothyroxine Sodium 25 MCG TAB PO SCH (05:39)
[2022-01-08] MEDS: Aspirin 81 mg Enteric Coated Tablet PO SCH (10:22)
[2022-01-08] MEDS: Mirtazapine 15 MG TAB PO SCH (10:22)
[2022-01-08] MEDS: Furosemide 20 MG TAB PO SCH (10:22)
[2022-01-08] MEDS: Saccharomyces boulardii 250 MG CAP PO SCH (10:22)
[2022-01-08] MEDS: Acetaminophen 325 MG TAB PO PRN ×2 (10:23→21:45)
[2022-01-08] MEDS: Apixaban 5 MG TAB PO SCH ×2 (10:23→21:44)
[2022-01-08] MEDS: Lorazepam 0.5 MG TAB PO SCH (14:01)
[2022-01-08] MEDS: guanFACINE HCl 1 MG TAB PO SCH (21:44)
[2022-01-08] MEDS: Rosuvastatin 10 MG TAB PO SCH (21:44)
[2022-01-08] MEDS: Donepezil HCl 10 MG TAB PO SCH (21:45)
[2022-01-09] MEDS: Levothyroxine Sodium 50 MCG TAB PO SCH (05:04)
[2022-01-09] MEDS: Levothyroxine Sodium 25 MCG TAB PO SCH (05:04)
[2022-01-09] MEDS: Furosemide 20 MG TAB PO SCH (09:43)
[2022-01-09] MEDS: Aspirin 81 mg Enteric Coated Tablet PO SCH (09:43)
[2022-01-09] MEDS: Saccharomyces boulardii 250 MG CAP PO SCH (09:43)
[2022-01-09] MEDS: Mirtazapine 15 MG TAB PO SCH (09:43)
[2022-01-09] MEDS: Apixaban 5 MG TAB PO SCH ×2 (09:44→20:43)
[2022-01-09] MEDS: Acetaminophen 325 MG TAB PO PRN ×2 (09:49→20:42)
[2022-01-09] MEDS: Lorazepam 0.5 MG TAB PO SCH (12:39)
[2022-01-09] MEDS: Lorazepam 1 MG TAB PO PRN (20:42)
[2022-01-09] MEDS: Donepezil HCl 10 MG TAB PO SCH (20:43)
[2022-01-09] MEDS: guanFACINE HCl 1 MG TAB PO SCH (20:43)
[2022-01-09] MEDS: Rosuvastatin 10 MG TAB PO SCH (20:43)
[2022-01-10] MEDS: Levothyroxine Sodium 25 MCG TAB PO SCH (05:21)
[2022-01-10] MEDS: Levothyroxine Sodium 50 MCG TAB PO SCH (05:21)
[2022-01-10 06:11] VITALS: BP 109/70; TEMP 97.7
[2022-01-10] MEDS: Furosemide 20 MG TAB PO SCH (09:03)
[2022-01-10] MEDS: Apixaban 5 MG TAB PO SCH (09:03)
[2022-01-10] MEDS: Saccharomyces boulardii 250 MG CAP PO SCH (09:03)
[2022-01-10] MEDS: Mirtazapine 15 MG TAB PO SCH (09:04)
[2022-01-10] MEDS: Aspirin 81 mg Enteric Coated Tablet PO SCH (09:04)
[2022-01-10] MEDS: Acetaminophen 325 MG TAB PO PRN ×2 (09:06→13:53)
[2022-01-10] MEDS: Lorazepam 0.5 MG TAB PO SCH (13:13)
== END 2022-01-03 14:00 | DRG 552 ==
LOC: BURMED 16:25
PROVIDERS: ADMIT Family Medicine; ATTEND Family Medicine
DX: M48.061 Spinal stenosis, lumbar region without neurogenic claudication (principal); E87.3 Alkalosis; R53.81 Other malaise; E87.6 Hypokalemia; E86.0 Dehydration; I10 Essential (primary) hypertension; E03.9 Hypothyroidism, unspecified; I48.91 Unspecified atrial fibrillation; E11.51 Type 2 diabetes mellitus with diabetic peripheral angiopathy without gangrene; F32.A Depression, unspecified; F41.9 Anxiety disorder, unspecified; G30.9 Alzheimer's disease, unspecified; M54.16 Radiculopathy, lumbar region; F02.80 Dementia in other diseases classified elsewhere, unspecified severity, without behavioral disturbance, psychotic disturbance, mood disturbance, and anxiety; E78.5 Hyperlipidemia, unspecified; Z86.73 Personal history of transient ischemic attack (TIA), and cerebral infarction without residual deficits; Z79.01 Long term (current) use of anticoagulants; Z88.1 Allergy status to other antibiotic agents; Z88.8 Allergy status to other drugs, medicaments and biological substances
CPT/HCPCS: 36415; 81001; 82565; 85014; 85018; 85049; 87077; 87086; 87186; J0696; J1956; J3490; J7050; Q9967